=== PATIENT | female | born 1945 | race Caucasian/White ===

== ENCOUNTER 2025-07-09 09:26 | Outpatient (AMB) | payer MEDICARE, OTHER, SELFPAY ==
--- NOTE | 2025-07-09 09:40 | MHC.OFFVIS ---
Intake Visit Reasons: F/U Allergies Penicillins Allergy (Unknown, Verified 07/09/25 09:44) Unknown Medication List - Last Reconciled 07/09/25 by Hanane Ward CNP apixaban (Eliquis) 5 mg PO BID buspirone 7.5 mg PO BID carvedilol 3.125 mg PO BID clonazepam (Klonopin) 0.5 mg PO BID 30 days losartan 25 mg PO BID omeprazole 20 mg PO DAILY pantoprazole 20 mg PO DAILY spironolactone 25 mg PO DAILY HPI Comments Details: She was doing okay. Infrequent headaches relieved with Tylenol as needed. Anxiety has been under control. Sleep was generally okay. Previously had episodes of chest pressure and shortness of breath. She has A fib intermittently. S/p second ablation 10/02/19 for A fib. First ablation complicated by pericarditis. Had another Atrial fib after first ablation. Has episodes of panic/ anxiety, feels a loud booming heartbeat, not fast, and feels like she can't breathe and hard to get out her voice. She had a tragic loss when her youngest son suddenly and was found on the floor in his bedroom for 14 hrs. Coping with the loss. There is no true spinning tilting of vertigo. The symptoms are not positional or postural. There is no lateralized weakness or numbness. No history of stroke or TIA. [facility] Medical History (Updated 07/09/25 @ 09:46 by Hanane Ward CNP) History of pericarditis Afib Arthritis Low back pain Hypertension Anxiety Tension headache Surgical History (Updated 07/09/25 @ 09:46 by Hanane Ward CNP) Status post total hip replacement, bilateral H/O cardiac ablation Review of Systems Const Denies chills, Denies daytime sleepiness, Reports difficulty sleeping, Denies fatigue, Denies fever(s), Denies frequent falls, Denies headache(s), Denies increased appetite, Denies poor appetite, Denies snoring, Denies weakness, Denies weight gain and Denies weight loss Eyes Denies loss of vision ENT Denies vertigo, Reports dizziness, Denies headache(s) and Denies neck pain Card Denies chest pain at rest, Denies chest pain with activity, Denies syncope, Denies leg edema, Denies palpitations, Denies dyspnea and Denies dyspnea on exertion Resp Denies cough, Denies dyspnea, Denies dyspnea on exertion and Denies snoring GI Denies abdominal pain, Denies constipation, Denies heartburn, Denies diarrhea and Denies nausea Denies urinary frequency, Denies urinary incontinence and Denies urinary urgency Musc Denies abnormal gait, Denies back pain, Denies myalgias, Denies arthralgias, Denies neck pain, Denies numbness and Denies tingling Neuro Denies abnormal gait, Denies vertigo, Reports dizziness, Denies syncope, Denies frequent falls, Denies headache(s), Denies lack of coordination, Denies loss of vision, Denies memory loss, Denies numbness, Denies Other visual disturbances, Denies restless legs, Denies seizure-like activity, Denies tingling, Denies paresthesias, Denies tremor(s), Denies weakness and Reports other (balance difficulty) Psych Reports anxiety, Denies depression, Denies auditory hallucinations, Denies memory loss and Denies visual hallucinations Endo Denies fatigue and Denies palpitations Physical Exam Const Other: General Appearance:? normal, in no acute distress. Heart:? S1, S2 normal, no murmurs. Lungs:? clear anteriorly and posteriorly. Musculoskeletal:? normal. Extremities:? no edema. Psych:? alert, oriented, cognitive function intact, cooperative with exam. Neuro Other: Abnormal Neurological Findings:?hypoactive DTRs in LE. Mental Status: alert and oriented X 3. Normal attention, orientation, memory, and affect. Cranial Nerves: Pupils are equal, round, and reactive to light. External ocular muscles are intact. Visual spear are full, no ptosis. Face is symmetrical, no facial weakness or droop. Facial sensations are normal. Tongue protrudes in midline. Palate elevates symmetrically. Shoulder shrugging is normal Motor Examination: Normal muscle tone, bulk and strength. No atrophy or fasciculations. No drift of the extended upper extremities. DTR 0-1+ and absent in LE. Plantars are flexor. Sensory Exam: Normal light touch, temperature, pinprick, vibration, and joint-position sensations. Rhomberg sign is absent. Coordination: No ataxia. No titubation. Gait Exam: Within normal limits. Cerebellar Signs: [id number] is okay. Extrapyramidal System: No tremor, rigidity with normal facial expressions. No bradykinesia. No bradyphrenia. Normal arm swing and posture. No propulsion or retropulsion. Speech: Normal. Results Reviewed Results Reviewed: EEG on 10/21/2013: Awake and drowsy EEG is within normal limits. Carotid U/S normal. MRI shows minor microvascular changes. Assessment & Plan Assessment & Plan (1) Tension headache: Code(s): G44.209 - Tension-type headache, unspecified, not intractable Category: Medical Plan: May continue Tylenol as needed. (2) Anxiety: Code(s): F41.9 - Anxiety disorder, unspecified Category: Medical Plan: Continue clonazepam 0.5mg 1 tablet twice a day #60 for 30 days. Coding Level of Care Code Est Pt Level 4 (18718) Diagnoses Tension headache G44.209 Anxiety F41.9
--- OUTSIDE RECORDS SUMMARY | 2025-07-09 12:57 | XMS_ITS | Clinical Summary ---
Author Organization [facility] Address [address] [place] [address] Phone Care Team Providers Care Loan Closer Name Role Phone Patti Oswald MD Primary Care Provider Allergies Active Allergy Reactions Criticality Noted Date Comments Diphenhydramine Hives,Itching,Other (see comments) 02/08/2011 Penicillins 08/03/2016 Shrimp Extract Hives,Other (see comments) 07/05/2005 Shrimp Flavor at times Medications Eliquis 5 MG tablet Take 5 mg by mouth in the morning and 5 mg in the evening. Active Biotin 1 MG capsule Take 1 capsule by mouth in the morning. 09/02/2024 Active busPIRone (BUSPAR) 7.5 MG tablet Take 7.5 mg by mouth in the morning and 7.5 mg in the evening. Active carvedilol (COREG) 3.125 MG tablet Take 1 tablet by mouth in the morning and 1 tablet in the evening. Take with meals. 10/23/2024 6 Active clonazePAM (KlonoPIN) 0.5 MG tablet Take 0.5 mg by mouth in the morning and 0.5 mg in the evening. Active losartan (COZAAR) 25 MG tablet Take 25 mg by mouth in the morning and 25 mg in the evening. 09/01/2019 Active omeprazole (PriLOSEC) [address] capsule Take 20 mg by mouth in the morning. 12/08/2016 Active spironolactone (ALDACTONE) 25 MG tablet Take 25 mg by mouth in the morning. 09/24/2024 6 Active Active Problems Problem Noted Date Diagnosed Date Gastroesophageal reflux disease 11/03/2024 Diverticulitis of large intestine 11/03/2024 Hypertensive disorder 11/03/2024 Lumbosacral radiculopathy 11/03/2024 Atrial fibrillation 11/03/2024 Osteoarthritis 11/03/2024 Thyroid nodule 09/29/2024 Overview (11/03/2024): Reportedly on CT angiogram of head and neck for evaluation of severely out of blood pressure in the ER September 2024 Aortic ectasia 02/04/2024 Overview (11/03/2024): Ascending aortic dilatation,, from 4.0 to 4.2 cm, last echo December 2023 Mitral valve regurgitation 03/15/2023 Dyspnea on exertion 07/19/2022 Chest discomfort 05/18/2022 Premature atrial contraction 05/18/2022 COVID-19 03/03/2022 Overview (11/03/2024): 02/27/2022, overall mild symptoms Menopausal syndrome 12/21/2021 Overview (11/03/2024): Last Assessment & Plan: I discussed hormone therapy and reviewed the findings of the [facility]. I discussed risks including cardiovascular disease- VT, DVT, stroke. These risks also increase with age. In general, the recommendation is to use these medications in women without significant additional CV risks for the shortest period of time to help with symptoms. She was counseled that she in fact does carry other cardiovascular risk and VTE risk factors. As such, I do not feel comfortable continuing her on hormone therapy. I counseled Lary re: non-hormonal options for treatment of vasomotor sx. Discussed option for Paxil, Effexor and Clonidine and reviewed their expected SE. A newer non-hormonal option is Veozah. I explained it is a relatively new medication and thus does not have superintendent [employer] safety data. However, the literature I have read, suggests it is overall safe. Can cause elevated transaminases and thus it is recommended that these be tested to ensure normal before starting and monitored at 3, 6, 9 months after starting. She was not interested in any other medications for her symptoms. She was counseled that her current every other day low dose can just be stopped and does not need further taper. She was encouraged to call in to make an appt if she should desire another option in the future. She agreed. 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 Sees Dr. Barger Vitamin D deficiency 01/23/2012 Lumbosacral radiculitis 10/05/2009 Prolapsed lumbar intervertebral disc 10/05/2009 Diverticulitis of colon 11/16/2006 Overview (11/03/2024): Incidental finding at colonoscopy 11/16/2006. Anxiety state 01/17/2006 Benign essential hypertension 10/02/2005 Overview (11/03/2024): 24hr ABP 2017 - BP controlled, appropriately dipping, on HCTZ 25 mg and metoprolol 25 mg Family History Medical History Relation Comments Hypertension Mother hypotension Diabetes Sibling 1 sister Cancer Sibling 2 sister Relation Status Comments Father Mother Sibling 1 Sibling 2 Social History Tobacco Use Types Packs/Day Years Used Date Smoking Tobacco: Former Cigarettes Comments:Smoking History Inf o:Every day Alcohol Use Standard Drinks/Week Comments No 0 (1 standard drink = 0.6 oz pur e alcohol) Comments Unknown Sex and Gender Information Value Date Recorded Sex Assigned at Not on file Legal Sex Female 4:47 PM EST Gender Identity Not on file Sexual Orientation Not on file Last Filed Vital Signs Vital Sign Reading Time Taken Comments Blood Pressure 110/68 12/19/2024 11:36 AM EDT Pulse 64 12/19/2024 11:36 AM EDT Temperature - - Respiratory Rate - - Oxygen Saturation 98% 12/19/2024 11: 36 AM EDT Inhaled Oxygen Concentration - - Weight 82.5 kg (181 lb 12.8 oz) 025 11:36 AM EDT Height - - Body Mass Index - - Plan of Treatment Health Maintenance Due Date Last Done Comments Influenza Vaccine (#1) 2025 08/01/2018 Pneumococcal Vaccine: 50+ Years Completed 05/02/2018, 06/05/2011 Pneumococcal Vaccine: Peds (0 to 5 Years) and At-Risk Patients (6 to 49 Years) Discontinued 05/02/2018, 06/05/2011 Hepatitis B Vaccine Aged Out No longe r eligible based on patient's age to complete this topic Insurance Medicare [facility] Care Teams Loan Closer Relationship Specialty Start Date End Date Patti Oswald MD [address] [place] [phone] PCP - General Internal Medicine 09/12/24
--- OUTSIDE RECORDS SUMMARY | 2025-07-09 12:57 | XMS_ITS ---
Author Name [facility] Organization Unknown Care Team Organization Name Specialty Phone Email Start Date End Da te [facility] 04/08/2025 [facility] Natanael Rivero Primary [facility] 01/26/202304/07 [facility] Margret [facility] 10/25/2022 04/07/2024 [facility] ISAC URRUTIA Primary Care 06/27/2022 04/07/20 24
== END 2025-07-09 10:19 | disposition home or self-care (01) ==
LOC: HO.HSM 09:26
PROVIDERS: Visit Provider Registered Nurse
DX: G44.209 Tension-type headache, unspecified, not intractable (principal); F41.9 Anxiety disorder, unspecified
CPT/HCPCS: 99214

== ENCOUNTER → 2025-07-09 09:26 | Outpatient (BNVA) | payer MEDICARE, OTHER, SELFPAY | PROVIDERS: Visit Provider Registered Nurse | DX: G44.209 Tension-type headache, unspecified, not intractable (principal); F41.9 Anxiety disorder, unspecified | CPT/HCPCS: 99212 ==